=== PATIENT | male | born 1965 | race Caucasian/White ===

== ENCOUNTER 2016-12-28 22:18 | Inpatient (IN) | payer BC ==
[~2016-12-28] VITALS: Ht 177.8 cm; Wt 97.1 kg
[2016-12-28] MEDS ORDERED: HEParin 1000 UNIT/ML (10ML VIAL) FOR BOLUS ONE ×2 (22:19→22:55)
[2016-12-28] MEDS ORDERED: CLOPIDOGREL 300 MG (PLAVIX) TABLET PO ONE ×2 (22:19→22:30)
[2016-12-28] MEDS ORDERED: morphine INJ 10 MG/ML 1ML (SYR OR VIAL) IVP STA ×2 (22:29→22:39)
[2016-12-28 22:37] LABS: BASOPHILS % (AUTO) 0 % (0-10); EOSINOPHILS # (AUTO) 0.3 10^3/uL (0.0-0.3); EOSINOPHILS % (AUTO) 2 % (0-10); LYMPHOCYTES # (AUTO) 4.8 X 10^3 (1.0-4.0); LYMPHOCYTES % (AUTO) 41 % (12-44); MEAN CORPUSCULAR HEMOGLOBIN 32 PG (25-34); MEAN CORPUSCULAR HGB CONC 35 G/DL (32-36); MEAN CORPUSCULAR VOLUME 91 FL (80-99); MONOCYTES # (AUTO) 1.1 X 10^3 (0.0-1.0); MONOCYTES % (AUTO) 9 % (0-12); NEUTROPHILS # (AUTO) 5.6 X 10^3 (1.8-7.8); NEUTROPHILS % (AUTO) 48 % (42-75); PLATELET COUNT 316 10^3/uL (130-400); RED CELL DISTRIBUTION WIDTH 13.5 % (10.0-14.5); WHITE BLOOD COUNT 11.8 10^3/uL (4.3-11.0)
[2016-12-28 22:41] LABS: INR 0.9 (0.8-1.4); PROTHROMBIN TIME PATIENT 12.7 SEC (12.2-14.7)
[2016-12-28 22:52] LABS: ALANINE AMINOTRANSFERASE 27 U/L (0-55); ALBUMIN 3.5 GM/DL (3.2-4.5); AMYLASE 36 U/L (25-125); ANION GAP 12 MMOL/L (5-14); ASPARTATE AMINO TRANSFERASE 20 U/L (5-34); BILIRUBIN,TOTAL 0.2 MG/DL (0.1-1.0); BLOOD UREA NITROGEN 16 MG/DL (7-18); BUN/CREATININE RATIO 15; CALCIUM 8.6 MG/DL (8.5-10.1); CARBON DIOXIDE 18 MMOL/L (21-32); CHLORIDE 107 MMOL/L (98-107); CREATINE KINASE 191 U/L (30-200); CREATININE SERUM 1.08 MG/DL (0.60-1.30); GFR ESTIMATED > 60; GLUCOSE 156 MG/DL (70-105); LIPASE 38 U/L (8-78); MAGNESIUM 2.1 MG/DL (1.8-2.4); POTASSIUM 3.9 MMOL/L (3.6-5.0); SODIUM 137 MMOL/L (135-145); TOTAL PROTEIN 6.2 GM/DL (6.4-8.2)
--- NOTE | 2016-12-28 22:53 | ED Chest Pain ---
General Stated Complaint: CHEST PAIN Source: patient, EMS, spouse History of Present Illness Time seen by provider: 22:18 Initial Comments PT ARRIVES VIA EMS FROM HOME C/O SEVERE MID CHEST PAIN AND LEFT ARM PAIN SINCE 1900 WAS EATING BIRTHDAY CAKE AND PASSED OUT AROUND 2100--FAMILY REPORTS "HE WAS GOING IN AND OUT OF IT" FOR A FEW MINUTES C/O SHORTNESS OF BREATH PROFUSELY DIAPHORETIC + NAUSEA, NO VOMITING EMS GAVE 4 ASPIRIN THEY COULD NOT OBTAIN A BP "ONLY TO PALPATION" BUT WENT AHEAD AND GAVE NTG X 2, THEY ALSO GAVE FENTANYL 50 MCG PT IS UNABLE TO RATE PAIN, BUT STATES IS A LITTLE BETTER, BUT STILL HAVING ALOT OF PAIN, STILL DIAPHORETIC, STILL NAUSEATED AND STILL SHORT OF BREATH C/O DIZZINESS NOW NO HISTORY OF SIMILAR, AND NO HISTORY OF ANY MEDICAL PROBLEMS PCP: NONE--JUST MOVED HERE 2 MONTHS AGO FROM [place] Allergies and Home Medications Allergies Coded Allergies: No Known Drug Allergies (Unverified , 12/28/16) Review of Systems Constitutional: diaphoresis, dizziness EENTM: No Symptoms Reported Respiratory: See HPI, Shortness of Air, SOA at Rest Cardiovascular: See HPI, Chest Pain, Lightheadedness, Denies Palpitations, Syncope Gastrointestinal: See HPI, Denies Abdominal Pain, Nausea, Denies Vomiting Genitourinary: No Symptoms Reported Musculoskeletal: see HPI (LEFT ARM PAIN ) Skin: no symptoms reported Psychiatric/Neurological: See HPI (SYNCOPE) Endocrine: No Symptoms Reported Hematologic/Lymphatic: No Symptoms Reported Past Jngnazm-Tgknla-Ouexrd Hx Patient Social History Alcohol Use: Occasionally Uses (MODERATE USE) Recreational Drug Use: No Smoking Status: Current Everyday Smoker (1 1/2 PPD) Type Used: Cigarettes Surgeries History of Surgeries: Yes (KNEE SURGERY) Surgeries: Orthopedic Respiratory History of Respiratory Disorde: No Cardiovascular History of Cardiac Disorders: No Neurological History of Neurological Disord: No Genitourinary History of Genitourinary Disor: No Gastrointestinal History of Gastrointestinal Di: No Musculoskeletal History of Musculoskeletal Dis: Yes (LEFT ELBOW FX-NO SURGERY; KNEE SURGERY) Musculoskeletal Disorders: Fractures Endocrine History of Endocrine Disorders: No HEENT History of HEENT Disorders: No Cancer History of Cancer: No Psychosocial History of Psychiatric Problem: No Integumentary History of Skin or Integumenta: No Blood Transfusions History of Blood Disorders: No Physical Exam Vital Signs Vital Sign - Last 12Hours 12/28/16 12/28/16 22:18 22:54 Temp 98.7 Pulse 50 Resp 18 B/P (MAP) 120/110 Pulse Ox 97 O2 Delivery Nasal Cannula O2 Flow Rate 2.00 FiO2 100 Capillary Refill : General Appearance: Anxious, Mild Distress, Other (PALE, PROFUSELY DIAPHORETIC , ANXIOUS) HEENT: PERRL/EOMI Neck: Full Range of Motion, Normal Inspection, Non Tender, Supple, No Carotid Bruit, No JVD Respiratory: Chest Non Tender, Normal Breath Sounds, No Accessory Muscle Use, No Respiratory Distress Cardiovascular: No Edema, No JVD, No Murmur, Normal Peripheral Pulses, Bradycardia Gastrointestinal: Normal Bowel Sounds, No Organomegaly, No Pulsatile Mass, Non Tender, Soft Extremity: Normal Capillary Refill, Normal Inspection, Normal Range of Motion, Non Tender, No Calf Tenderness, No Pedal Edema Neurologic/Psychiatric: Alert, Oriented x3, No Motor/Sensory Deficits, tennis racket repairer II- XII Norm as Tested, Other (ANXIOUS) Skin: Diaphoresis, Pallor Critical Care Note Critical Care Start Time: 22:18 Total Time (minutes) 30 Progress/Results/Core Measures Results/Orders Lab Results Laboratory Tests Test 12/28/16 22:22 Range/Units White Blood Count 11.8 H 4.3-11.0 10^3/uL Red Blood Count 4.60 4.35-5.85 10^6/uL Hemoglobin 14.5 13.3-17.7 G/DL Hematocrit 42 40-54 % Mean Corpuscular Volume 91 80-99 FL Mean Corpuscular Hemoglobin 32 25-34 PG Mean Corpuscular Hemoglobin Concent 35 32-36 G/DL Red Cell Distribution Width 13.5 10.0-14.5 % Platelet Count 316 130-400 10^3/uL Mean Platelet Volume 10.0 7.4-10.4 FL Neutrophils (%) (Auto) 48 42-75 % Lymphocytes (%) (Auto) 41 12-44 % Monocytes (%) (Auto) 9 0-12 % Eosinophils (%) (Auto) 2 0-10 % Basophils (%) (Auto) 0 0-10 % Neutrophils # (Auto) 5.6 1.8-7.8 X 10^3 Lymphocytes # (Auto) 4.8 H 1.0-4.0 X 10^3 Monocytes # (Auto) 1.1 H 0.0-1.0 X 10^3 Eosinophils # (Auto) 0.3 0.0-0.3 10^3/uL Basophils # (Auto) 0.0 0.0-0.1 10^3/uL Prothrombin Time 12.7 12.2-14.7 SEC INR Comment 0.9 0.8-1.4 Activated Partial Thromboplast Time 23 L 24-35 SEC Sodium Level 137 135-145 MMOL/L Potassium Level 3.9 3.6-5.0 MMOL/L Chloride Level 107 98-107 MMOL/L Carbon Dioxide Level 18 L 21-32 MMOL/L Anion Gap 12 5-14 MMOL/L Blood Urea Nitrogen 16 7-18 MG/DL Creatinine 1.08 0.60-1.30 MG/DL Estimat Glomerular Filtration Rate > 60 BUN/Creatinine Ratio 15 Glucose Level 156 H 70-105 MG/DL Calcium Level 8.6 8.5-10.1 MG/DL Magnesium Level 2.1 1.8-2.4 MG/DL Total Bilirubin 0.2 0.1-1.0 MG/DL Aspartate Amino Transf (AST/SGOT) 20 5-34 U/L Alanine Aminotransferase (ALT/SGPT) 27 0-55 U/L Alkaline Phosphatase 59 40-136 U/L Total Creatine Kinase 191 30-200 U/L Creatine Kinase MB 3.1 <6.6 NG/ML B-Type Natriuretic Peptide 10.9 <100.0 PG/ML Total Protein 6.2 L 6.4-8.2 GM/DL Albumin 3.5 3.2-4.5 GM/DL Amylase Level 36 25-125 U/L Lipase 38 8-78 U/L My Orders Orders - ADITI DONALDSON DO Heparin (Bolus Per Protocol) (Heparin (B (12/28/16 22:19) Clopidogrel Tablet (Plavix Tablet) (12/28/16 22:19) Amylase (12/28/16 22:29) Cbc With Automated Diff (12/28/16 22:29) Comprehensive Metabolic Panel (12/28/16 22:29) Creatine Kinase (12/28/16 22:29) Creatine Kinase Mb (12/28/16 22:29) Lipase (12/28/16 22:29) Partial Thromboplastin Time (12/28/16 22:29) Protime With Inr (12/28/16 22:29) Troponin I (12/28/16 22:29) Chest 1 View, Ap/Pa Only (12/28/16 22:29) O2 (12/28/16 22:29) Ekg Tracing (12/28/16 22:29) BNP (12/28/16 22:29) Monitor-Rhythm Ecg Trace Only (12/28/16 22:29) Magnesium (12/28/16 22:29) Morphine Injection (Morphine Injection (12/28/16 22:29) Clopidogrel Tablet (Plavix Tablet) (12/28/16 22:30) Heparin Injection (Heparin Injection) (12/28/16 22:30) Ekg Tracing (12/28/16 22:39) Morphine Injection (Morphine Injection (12/28/16 22:39) Alcohol (12/28/16 22:53) Midazolam Injection (Versed Injection) (12/28/16 22:55) Fentanyl Injection (Sublimaze Injection (12/28/16 22:55) Heparin (Bolus Per Protocol) (Heparin (B (12/28/16 22:55) Ns Iv 1000 Ml (Sodium Chloride 0.9%) (12/28/16 22:55) Nitroglycerin Drip 25 Mg/D5w (Nitroglyce (12/28/16 22:55) Heparin ([employer] Gl[employer]ier) (Heparin ([employer] Glazier)) (12/28/16 22:55) Medications Given in ED Current Medications Medications Dose Ordered Sig/Lilia Route Start Time Stop Time Status Last Admin Dose Admin Clopidogrel Bisulfate 600 mg ONCE ONCE PO 12/28/16 22:30 12/28/16 22:32 DC 12/28/16 22:46 600 MG Heparin Sodium (Porcine) 5,000 units ONCE ONCE IV 12/28/16 22:30 12/28/16 22:32 DC 12/28/16 22:46 5,000 UNITS Vital Signs/I&O Vital Sign - Last 12Hours 12/28/16 12/28/16 12/28/16 22:18 22:54 23:08 Temp 98.7 Pulse 50 Resp 18 B/P (MAP) 120/110 Pulse Ox 97 96 O2 Delivery Nasal Cannula Room Air Nasal Cannula O2 Flow Rate 2.00 2.0 FiO2 100 Intake and Output 12/29/16 00:00 Intake Total 500 ml Balance 500 ml Progress Note : Progress Note ALL SYMPTOMS BEGINNING TO EASE--NO LONGER SHORT OF BREATH, NAUSEA IS GONE, NO LONGER DIAPHORETIC AND PAIN BEGINNING TO EASE WITH MEDICATIONS, AND BP IS UP NO DETERIORATION IN PT'S CONDITION DURING ER STAY 2340--MULTIPLE FAMILY MEMBERS IN ROOM NOW, AND PT IS VERY TALKATIVE, JOVIAL, LAUGHING, ETC. ECG Initial ECG Impression Time: 22:18 Initial ECG Rate: 50 Initial ECG Rhythm: Normal Sinus Initial ECG Impression: Acute CO (INFERIOR) Initial ECG Comparisson: No Previous ECG Available EKG : EKG Time: 22:28 Rate: 55 Rhythm: Normal Sinus ECG Impression: Acute CO (INFERIOR) Diagnostic Imaging Comments CXR--NO ACUTE PROCESS, PENDING RADIOLOGIST REVIEW Reviewed: Reviewed by Me Departure Communication (Admissions) Progress Notes 2220--SPOKE WITH DR. GRIDER, ADVISES PLAVIX 600 MG AND HEPARIN 5000 UNITS, CALL IN CHECKERER HAND ( BEING DONE AT THIS TIME BY RN. ) 2310--CHECKERER HAND HERE TO TAKE PT Impression Impression: Primary Impression: Acute ST elevation myocardial infarction (STEMI) of inferior wall Disposition: ADMITTED INPATIENT (TO CHECKERER HAND) Condition: Improved Admissions Decision to Admit Reason: Admit from ER (General) (TO CHECKERER HAND) Decision to Admit/Date: Dec 28, 2016 Time/Decision to Admit Time: 22:20 Departure-Patient Inst. Referrals: NO,LOCAL PHYSICIAN (PCP/Family) Primary Care Physician ADITI DONALDSON DO Dec 28, 2016 22:53
[2016-12-28] MEDS ORDERED: fentaNYL INJECTION 100 MCG/2 ML AMP ONE (22:55)
[2016-12-28] MEDS ORDERED: NS IV 1000 ML 1,000 ML ONE (22:55)
[2016-12-28] MEDS ORDERED: NITROGLYCERIN DRIP 25 MG/D5W 250 ML IV ONE (22:55)
[2016-12-28] MEDS ORDERED: HEParin (CATH LAB) 2,000 ML IV ONE (22:55)
[2016-12-28] MEDS ORDERED: MIDAZOLAM 5 MG/5 ML (VERSED) VIAL ONE (22:55)
[2016-12-28 22:58] LABS: TROPONIN I < 0.30 NG/ML (<0.30)
[2016-12-28] MEDS ORDERED: ATROPINE INJECTION 1 MG/10 ML SYR (ABBOTT) ONE (23:24)
[2016-12-28] MEDS: NS IV 1000 ML 1,000 ML IV SCH (23:32)
[2016-12-28] MEDS ORDERED: EPTIFIBATIDE BOLUS 20 ML IV ONE (23:36)
[2016-12-28] MEDS ORDERED: niCARdipine 25 MG/10 ML (CARDENE) AMP IV ONE (23:37)
[2016-12-28] MEDS ORDERED: NS (IVPB) 250 ML ONE (23:37)
[2016-12-28] MEDS ORDERED: EPTIFIBATIDE DRIP 100 ML IV ONE (23:39)
[2016-12-29] VITALS (20 sets, daily range): BP systolic 112–169; BP diastolic 85–117
[2016-12-29] MEDS ORDERED: meTOprolol 5 MG/5 ML (LOPRESSOR) VIAL ONE (00:03)
--- NOTE | 2016-12-29 00:20 | History & Physicial-Cardiolgy ---
HPI-Cardiology Cardiology Consultation: Date of Consultation 12/29/16 Date of Admission Attending Physician Admitting Physician Tosin,Local Physician Consulting Physician Olimpia GRIDER MD HPI: Time Seen by Provider: 11:15 Chief Complaint: chest pain this is a 50-year-old gentleman with history of active smoking. He presents with chest pain which started at 7 p.m. Initially it was not that severe. However after a few minutes it became very severe intensity 8-10/10. Substernal. no radiation. Improved significantly after reaching the ER. Denies any other symptoms. Review of Systems-Cardiology Review of Systems Constitutional: No As described under HPI, No no symptoms reported, No chills, No fever, No lightheadedness, No malaise, No tiredness, No weight loss, No weight gain, No other Eyes: No As described under HPI, No no symptoms reported, No blindness, No blurred vision, No contact lenses, No drainage, No decreased acuity, No foreign body sensation, No glasses, No inflammation, No pain, No photophobia, No previous injury, No shadows, No tunnel vision, No other, No vision change Ears/Nose/Throat: No As described under HPI, No no symptoms reported, No chronic hearing loss, No epistaxis, No ear discharge, No ear pain, No loose teeth, No mouth pain, No mouth swelling, No nasal drainage, No nose pain, No recent hearing loss, No throat pain, No throat swelling, No ulcerations, No other Respiratory: No no symptoms reported, No As described under HPI, No cough, No orthopnea, No shortness of breath, No SOB with excertion, No SOB at rest, No stridor, No wheezing, No other Cardiovascular: chest pain Gastrointestinal: No no symptoms reported, No As described under HPI, No abdomen distended, No abdominal pain, No blood streaked bowels, No constipation , No diarrhea, No difficulty swallowing, No nausea, No poor appetite, No poor fluid intake, No rectal bleeding, No vomiting, No other, No nausea/vomiting/ diarrhea, No stool coloration changes Genitourinary: No no symptoms reported, No As described under HPI, No burning, No dysuria, No discharge, No frequency, No flank pain, No hematuria, No incontinence, No pain, No urgency, No other, No urine frequency changes, No urine coloration changes Musculoskeletal: No no symptoms reported, No As describe under HPI, No back pain, No gout, No joint pain, No joint swelling, No muscle pain, No muscle stiffness, No neck pain, No other Skin: No no symptoms reported, No As described under HPI, No change in color, No change in hair/nails, No dryness, No lesions, No lumps, No rash, No other, No skin related problems, No ulcerations, No rash on exposed areas, No ulcerations on exposed areas Psychiatric/Neurological: No no symptoms reported, No As described under HPI, No anxiety, No depression, No emotional problems, No headache, No numbness, No pre-existing deficit, No seizure, No tingling, No tremors, No weakness, No other , No focal weakness, No syncope GAX-Cyluwj-Nwqnsr Hx Patient Social History Alcohol Use: Occasionally Uses (MODERATE USE) Recreational Drug Use: No Smoking Status: Current Everyday Smoker (1 1/2 PPD) Type Used: Cigarettes Recent Foreign Travel: No Recent Infectious Disease Expo: No Past Medical History PMH As described under Assessment. Allergies and Home Medications Allergies Coded Allergies: No Known Drug Allergies (Unverified , 12/28/16) Physical Exam-Cardiology Physical Exam Vital Signs/I&O Vital Sign - Last 12Hours 12/28/16 12/28/16 12/28/16 12/28/16 22:18 22:54 23:08 23:12 Temp 98.7 98.6 Pulse 50 55 Resp 18 16 B/P (MAP) 120/110 Pulse Ox 97 96 98 O2 Delivery Nasal Cannula Room Air Nasal Cannula Nasal Cannula O2 Flow Rate 2.00 2.0 2.00 FiO2 100 Capillary Refill : Less Than 3 Seconds Constitutional: No appears stated age, No AAO x 3, No apparent distress, No PERRL, No well-developed, No well-nourished, No other HEENT: No PERRL, No normal ENT inspection, No TMs normal, No pharynx normal, No scleral icterus (R), No scleral icterus (L), No pale conjunctivae (R), No pale conjunctivae (L), No photophobia, No TM abnormal (R), No TM abnormal (L), No pharyngeal erythema, No tonsillar exudate, No other, No discharge, No EOMI, No hearing is well preserved, No hard of hearing, No oral hygience is good, No ulceration, No xanthelasmas are seen Neck: No non-tender, No full range of motion, No supple, No normal inspection, No carotid bruit, No limited range of motion, No lymphadenopathy (R), No lymphadenopathy (L), No tender lateral, No tender midline, No thyromegaly, No other, No carotid pulses are 2 + bilaterally, No with good upstrokes Respiratory: No accessory muscle use, No respiratory distress, No chest tender , No chest expansion is symmetric, No chest is bilaterally symmetric, No lungs clear to percussion, No lungs clear to auscultation, No crackles, No rhonchi, No rales, No stridor, No wheezing, No pleural rub, No other Cardiovascular: No regular rate-rhythm, No irregularly irregular, No extra beats, No parasternal heave is noted, No JVD, No edema, No bradycardia, No tachycardia, No point of maximal impulse, No cardiac thrills are palpable, No S1 and S2, No gallop/S3, No gallop/S4, No diastolic murmur, No systolic murmur, No friction rub, No click, No other Gastrointestinal: No tender, No soft, No round, No distended, No pulsatile mass , No organomegaly, No guarding, No rebound, No tenderness, No hernia, No mass, No audible bowel sounds, No abnormal bowel sounds, No abdominal bruits, No spleenomegaly, No other Rectal: deferred Extremities: No normal range of motion, No non-tender, No normal inspection, No pedal edema, No calf tenderness, No normal capillary refill, No pelvis stable , No calf tenderness, No inflammation, No pedal edema, No slow capillary refill , No swelling, No other, No abrasion, No clubbing, No cyanosis, No ecchymosis, No laceration, No no lower extremity edema bilateral, No significant edema, No tenderness, No wound Neurologic/Psychiatric: No brim stretching machine operator II-XII nml as tested, No no motor/sensory deficits, No alert, No normal mood/affect, No oriented x 3, No abnormal cerebellar tests, No abnormal brim stretching machine operator II-XII, No abnormal gait, No aphasia, No EOM palsy, No facial droop, No motor weakness, No sensory deficit, No depressed affect, No disoriented x 3, No other, No grossly intact, No power is 5/5 both on sides Skin: No normal color, No warm/dry, No cyanosis, No cool, No diaphoresis, No damp, No ecchymosis, No jaundice, No mottled, No pallor, No rash, No tattoos/ piercings, No ulcerations, No rash on exposed areas, No ulcerations on exposed areas, No other Data Review Labs Laboratory Tests 12/28/16 22:22: White Blood Count 11.8H, Red Blood Count 4.60, Hemoglobin 14.5, Hematocrit 42, Mean Corpuscular Volume 91, Mean Corpuscular Hemoglobin 32, Mean Corpuscular Hemoglobin Concent 35, Red Cell Distribution Width 13.5, Platelet Count 316, Mean Platelet Volume 10.0, Neutrophils (%) (Auto) 48, Lymphocytes (%) (Auto) 41 , Monocytes (%) (Auto) 9, Eosinophils (%) (Auto) 2, Basophils (%) (Auto) 0, Neutrophils # (Auto) 5.6, Lymphocytes # (Auto) 4.8H, Monocytes # (Auto) 1.1H, Eosinophils # (Auto) 0.3, Basophils # (Auto) 0.0, Prothrombin Time 12.7, INR Comment 0.9, Activated Partial Thromboplast Time 23L, Sodium Level 137, Potassium Level 3.9, Chloride Level 107, Carbon Dioxide Level 18L, Anion Gap 12 , Blood Urea Nitrogen 16, Creatinine 1.08, Estimat Glomerular Filtration Rate > 60, BUN/Creatinine Ratio 15, Glucose Level 156H, Calcium Level 8.6, Magnesium Level 2.1, Total Bilirubin 0.2, Aspartate Amino Transf (AST/SGOT) 20, Alanine Aminotransferase (ALT/SGPT) 27, Alkaline Phosphatase 59, Total Creatine Kinase 191, Creatine Kinase MB 3.1, Troponin I < 0.30, B-Type Natriuretic Peptide 10.9 , Total Protein 6.2L, Albumin 3.5, Amylase Level 36, Lipase 38, Serum Alcohol 12H ECG Impression ECG Initial ECG Impression: Acute CA A/P-Cardiology Assessment/Admission Diagnosis acute inferior STEMI Plan acute inferior STEMI - emergent coronary angiography. aspirin, Plavix, heparin bolus given in the ER. ICU admission Clinical Quality Measures AMI/AHF: Ejection Fraction: Normal LVSF Olimpia GRIDER MD Dec 29, 2016 00:20
[2016-12-29] MEDS ORDERED: NS IV 1000 ML 1,000 ML IV SCH (00:22)
--- NOTE | 2016-12-29 00:22 | Cardiology Post Procedure Note ---
Post-Procedure Note Physician (s)/Ear Nose Throat Physician (s) Physician Olimpia GRIDER MD Pre-Procedure Diagnosis Pre-Procedure Diagnosis: acute inferior STEMI Post-Procedure Note Procedure Start Date: Dec 29, 2016 Procedure Start Time: 11:15 Name of Procedure: primary PCI to the RCA with drug-eluting stent Findings/Procedure Note occluded RCA treated successfully with drug-eluting stent. Normal LV function with basal inferior hypokinesis. LVEDP 12. Anesthesia Type: Conscious Sedation Estimated blood loss (mL): 30 Contrast Amount: 227 Post-Procedure Diagnosis Post-operative diagnosis: successful primary PCI to RCA Olimpia GRIDER MD Dec 29, 2016 00:22
[2016-12-29] MEDS ORDERED: PATIENT MAY USE OWN MEDS, ALL PO SCH ×2 (00:30→00:45)
[2016-12-29] MEDS: NS IV 1000 ML 1,000 ML IV SCH ×3 (01:34→10:30)
[2016-12-29] MEDS ORDERED: EPTIFIBATIDE DRIP 100 ML IV ONE (05:33)
[2016-12-29 06:27] LABS: MEAN PLATELET VOLUME 10.5 FL (7.4-10.4); RED BLOOD COUNT 4.86 10^6/uL (4.35-5.85); RED CELL DISTRIBUTION WIDTH 13.9 % (10.0-14.5); WHITE BLOOD COUNT 9.8 10^3/uL (4.3-11.0)
[2016-12-29] MEDS: EPTIFIBATIDE DRIP 100 ML IV SCH ×2 (06:33→07:17)
[2016-12-29 06:47] LABS: ANION GAP 10 MMOL/L (5-14); BLOOD UREA NITROGEN 13 MG/DL (7-18); BUN/CREATININE RATIO 16; CALCIUM 8.7 MG/DL (8.5-10.1); CARBON DIOXIDE 21 MMOL/L (21-32); CHLORIDE 105 MMOL/L (98-107); CHOLESTEROL 188 MG/DL (< 200); CREATININE SERUM 0.79 MG/DL (0.60-1.30); DIRECT LDL 126 MG/DL (1-129); GFR ESTIMATED > 60; GLUCOSE 99 MG/DL (70-105); POTASSIUM 4.8 MMOL/L (3.6-5.0); SODIUM 136 MMOL/L (135-145); TRIGLYCERIDES 277 MG/DL (<150); VLDL CHOLESTEROL 55 MG/DL (5-40)
[2016-12-29 07:14] LABS: TROPONIN I 32.29 NG/ML (<0.30)
--- NOTE | 2016-12-29 07:38 | Diagnostic Imaging Report ---
INDICATION: Chest pain. COMPARISON: None. Single view of the chest demonstrates clear lungs bilaterally. The heart is normal. No pneumothorax. Osseous structures normal. IMPRESSION: Negative chest. Dictated by: Dictated on workstation # [id number]
[2016-12-29] MEDS ORDERED: ASPIRIN E.C. 81 MG (ECOTRIN) TAB PO SCH (09:00)
[2016-12-29] MEDS ORDERED: CLOPIDOGREL 75 MG (PLAVIX) TABLET PO SCH (09:00)
[2016-12-29] MEDS ORDERED: lisINopril 5 MG (PRINIVIL) TABLET PO SCH ×2 (09:00)
[2016-12-29] MEDS ORDERED: meTOprolol TARTRATE 25 MG (LOPRESSOR) TABLET PO SCH ×2 (09:00)
--- NOTE | 2016-12-29 12:28 | Cardiology Progress Note ---
Cardiology SOAP Progress Note Subjective: no further chest pain Objective: I&O/Vital Signs Vital Sign - Last 12Hours 12/29/16 12/29/16 12/29/16 12/29/16 00:45 01:00 01:00 01:15 Temp 96.9 Pulse 84 88 87 87 Resp 10 15 9 B/P (MAP) 131/100 141/107 141/97 Pulse Ox 98 100 100 O2 Delivery Nasal Cannula Nasal Cannula Nasal Cannula O2 Flow Rate 4.00 4.00 4.00 12/29/16 12/29/16 12/29/16 12/29/16 01:30 01:45 02:00 02:30 Pulse 92 97 84 96 Resp 8 10 12 B/P (MAP) 142/97 169/117 139/113 129/95 Pulse Ox 99 100 98 99 O2 Delivery Nasal Cannula Nasal Cannula Nasal Cannula Nasal Cannula O2 Flow Rate 4.00 4.00 4.00 4.00 12/29/16 12/29/16 12/29/16 12/29/16 02:48 03:00 04:00 04:00 Temp 97.2 Pulse 95 87 Resp 15 11 B/P (MAP) 134/100 139/102 Pulse Ox 100 99 99 O2 Delivery Nasal Cannula O2 Flow Rate 4.00 12/29/16 12/29/16 12/29/16 12/29/16 04:00 05:00 06:00 07:00 Pulse 92 91 93 Resp 28 14 14 B/P (MAP) 143/104 129/100 142/103 Pulse Ox 100 99 98 96 O2 Delivery Nasal Cannula Room Air O2 Flow Rate 4.00 FiO2 100 12/29/16 12/29/16 12/29/16 12/29/16 07:00 07:39 08:00 08:00 Temp 99.5 Pulse 99 93 Resp 16 B/P (MAP) 138/96 Pulse Ox 96 O2 Delivery Room Air Room Air 12/29/16 12/29/16 12/29/16 09:00 10:00 11:00 Pulse 89 92 83 Resp 24 25 14 B/P (MAP) 126/92 130/86 127/94 Pulse Ox 92 95 95 O2 Delivery Room Air Room Air Room Air Weight (Pounds): 212 Weight (Ounces): 0.0 Weight (Calculated Kilograms): 96.355518 Side: right Groin site without hematoma: Yes Condition: DP/PT pulses palpable Constitutional: No appears stated age, No AAO x 3, No apparent distress, No PERRL, No well-developed, No well-nourished, No other Respiratory: No accessory muscle use, No respiratory distress, No chest tender , No chest expansion is symmetric, No chest is bilaterally symmetric, No lungs clear to percussion, No lungs clear to auscultation, No crackles, No rhonchi, No rales, No stridor, No wheezing, No pleural rub, No other Cardiovascular: No regular rate-rhythm, No irregularly irregular, No extra beats, No parasternal heave is noted, No JVD, No edema, No bradycardia, No tachycardia, No point of maximal impulse, No cardiac thrills are palpable, No S1 and S2, No gallop/S3, No gallop/S4, No diastolic murmur, No systolic murmur, No friction rub, No click, No other Gastrointestional: No tender, No soft, No round, No distended, No pulsatile mass, No organomegaly, No guarding, No rebound, No tenderness, No hernia, No mass, No audible bowel sounds, No abnormal bowel sounds, No abdominal bruits, No spleenomegaly, No other Extremities: No normal range of motion, No non-tender, No normal inspection, No pedal edema, No calf tenderness, No normal capillary refill, No pelvis stable , No calf tenderness, No inflammation, No pedal edema, No slow capillary refill , No swelling, No other, No abrasion, No clubbing, No cyanosis, No ecchymosis, No laceration, No no lower extremity edema bilateral, No significant edema, No tenderness, No wound Neurologic/Psychiatric: No sample shoe inspector and reworker II-XII nml as tested, No no motor/sensory deficits, No alert, No normal mood/affect, No oriented x 3, No abnormal cerebellar tests, No abnormal sample shoe inspector and reworker II-XII, No abnormal gait, No aphasia, No EOM palsy, No facial droop, No motor weakness, No sensory deficit, No depressed affect, No disoriented x 3, No other, No grossly intact, No power is 5/5 both on sides Skin: No normal color, No warm/dry, No cyanosis, No cool, No diaphoresis, No damp, No ecchymosis, No jaundice, No mottled, No pallor, No rash, No tattoos/ piercings, No ulcerations, No rash on exposed areas, No ulcerations on exposed areas, No other Results/Procedures: Labs Laboratory Tests 12/28/16 22:22: White Blood Count 11.8H, Red Blood Count 4.60, Hemoglobin 14.5, Hematocrit 42, Mean Corpuscular Volume 91, Mean Corpuscular Hemoglobin 32, Mean Corpuscular Hemoglobin Concent 35, Red Cell Distribution Width 13.5, Platelet Count 316, Mean Platelet Volume 10.0, Neutrophils (%) (Auto) 48, Lymphocytes (%) (Auto) 41 , Monocytes (%) (Auto) 9, Eosinophils (%) (Auto) 2, Basophils (%) (Auto) 0, Neutrophils # (Auto) 5.6, Lymphocytes # (Auto) 4.8H, Monocytes # (Auto) 1.1H, Eosinophils # (Auto) 0.3, Basophils # (Auto) 0.0, Prothrombin Time 12.7, INR Comment 0.9, Activated Partial Thromboplast Time 23L, Sodium Level 137, Potassium Level 3.9, Chloride Level 107, Carbon Dioxide Level 18L, Anion Gap 12 , Blood Urea Nitrogen 16, Creatinine 1.08, Estimat Glomerular Filtration Rate > 60, BUN/Creatinine Ratio 15, Glucose Level 156H, Calcium Level 8.6, Magnesium Level 2.1, Total Bilirubin 0.2, Aspartate Amino Transf (AST/SGOT) 20, Alanine Aminotransferase (ALT/SGPT) 27, Alkaline Phosphatase 59, Total Creatine Kinase 191, Creatine Kinase MB 3.1, Troponin I < 0.30, B-Type Natriuretic Peptide 10.9 , Total Protein 6.2L, Albumin 3.5, Amylase Level 36, Lipase 38, Serum Alcohol 12H 12/29/16 05:29: White Blood Count 9.8, Red Blood Count 4.86, Hemoglobin 15.3, Hematocrit 45, Mean Corpuscular Volume 92, Mean Corpuscular Hemoglobin 32, Mean Corpuscular Hemoglobin Concent 34, Red Cell Distribution Width 13.9, Platelet Count 286, Mean Platelet Volume 10.5H, Sodium Level 136, Potassium Level 4.8, Chloride Level 105, Carbon Dioxide Level 21, Anion Gap 10, Blood Urea Nitrogen 13, Creatinine 0.79, Estimat Glomerular Filtration Rate > 60, BUN/Creatinine Ratio 16, Glucose Level 99, Calcium Level 8.7, Troponin I 32.29*H, Triglycerides Level 277H, Cholesterol Level 188, LDL Cholesterol Direct 126, VLDL Cholesterol 55H, HDL Cholesterol 43 A/P: Assessment/Dx: acute inferior STEMI Plan: acute inferior STEMI - emergent coronary angiography followed by primary PCI with drug-eluting stent to proximal RCA. Another drug-eluting stent to distal RCA. Aspirin, Plavix, IV Integrilin, beta sherine, ADRIANNE inhibitor, high-dose statin. DC IV Integrilin. Increase metoprolol to 50 mg twice a day. Increase lisinopril to 5 mg daily. Echocardiogram showed borderline normal ejection fraction with inferior hypokinesis. can change to stepdown status. Smoking cessation strongly recommended Thank you for your consultation. Please call me if you have any questions. Brian Wagoner MD, FACP, FACC, FSCAI, FHRS, CCDS Interventional Cardiology Cardiac Electrophysiology Vascular Medicine and Endovascular Interventions Olimpia WAGONER MD Dec 29, 2016 12:28
[2016-12-29] MEDS: ASPIRIN E.C. 81 MG (ECOTRIN) TAB PO SCH (12:29)
[2016-12-29] MEDS: CLOPIDOGREL 75 MG (PLAVIX) TABLET PO SCH (12:29)
[2016-12-29] MEDS ORDERED: lisINopril 5 MG (PRINIVIL) TABLET PO NR (13:45)
--- NOTE | 2016-12-29 14:04 | CARDIAC CATHETERIZATION ---
DATE OF SERVICE: INDICATION: Acute inferior STEMI. PREOPERATIVE DIAGNOSIS: Acute inferior ST elevation myocardial infarction. POSTOPERATIVE DIAGNOSIS: 1. Acute inferior ST elevation myocardial infarction. 2. Successful primary percutaneous coronary intervention to the proximal right coronary artery with drug-eluting stent. HISTORY: The patient is a 50-year-old gentleman with history of active smoking. He presented with chest pain since 7:00 p.m. EKG in the ER showed inferior ST elevation, acute coronary syndrome. cook house laborer was emergently called. PROCEDURE PERFORMED: 1. Coronary angiography. 2. Left heart catheterization. 3. Primary percutaneous coronary intervention to the proximal right coronary artery with drug-eluting stent. COMPLICATIONS: None. SPECIMENS: None. ESTIMATED BLOOD LOSS: 20 mL. ANTICOAGULATION: 1. IV heparin. 2. IV Integrilin. CONTRAST: 227 mL of Omnipaque. FLUOROSCOPY TIME: 12.4 minutes. FLUOROSCOPY DOSE: 1825 mGy. PROCEDURE: The patient was brought to the laboratory equipment cleaner emergently for acute inferior STEMI. He was draped and prepped in the usual sterile fashion. Access was gained in the right femoral artery with a 6-Tajik sheath. Right coronary angiography was performed with right guide catheter, left heart catheterization was performed with a pigtail catheter, left coronary system was engaged with a JL4 diagnostic catheter. FINDINGS: 1. RCA: Totally occluded in the proximal segment. 2. Left main: No significant disease. 3. LAD: Mild to moderate proximal disease 30-50% stenosis. This is a transapical vessel. Mild diffuse disease is noted in the rest of the blood vessel. 4. Left circumflex artery: Moderate to severe ostial disease 50-70% stenosis. There is also moderate 50% disease in the proximal segment of the left circumflex artery. Mild diffuse disease is noted in the rest of the blood vessel. 5. Left heart catheterization: Aortic pressure 104/68, LV pressure 99/3 mmHg, LVEDP 12 mmHg. Ejection fraction normal. Basal inferior hypokinesis is noted. There was no gradient across the aortic valve. RECOMMENDATION: Primary PCI to the proximal RCA is recommended. PCI DETAILS: A JR4 guide catheter, Whisper guidewire, IV heparin and Integrilin for anticoagulation. ACT during the procedure was over 200 seconds. The lesion was crossed with the Whisper wire and a 2.0 x 15 semicompliant balloon. The first inflation was performed at nominal pressures for 10 seconds. Recanalization of the vessel was achieved. Initial EVARISTO flow was 0. Total balloon time was 72 minutes. The wire was placed in the distal vessel. Further ballooning was performed with the same balloon at higher pressures. Significant clot burden was noted. Therefore, 50 mg of intracoronary Cardene was given. We then took 3.5 x 23 drug-eluting stent which was Burt Alpine stent. This was deployed at 16 atmospheres. 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 There was 70% distal RCA disease noted which was treated with a 2.75 x 12 stent which was placed at 14 atmospheres. The same stent balloon was used to post dilatation of the proximal and midsegment at 16 atmospheres. We then took a 4.0 x 20 noncompliant balloon and did an inflation to 20 atmospheres in the proximal stent with excellent results post dilatation. EVARISTO 3 flow was achieved. Another Cardene was given 100 mg. The patient was also given double bolus of Integrilin and started on Integrilin infusion. At the end of the procedure there was still some very distal clot noted however there was EVARISTO 3 flow with almost no residual stenosis. The patient tolerated the procedure well and did not have any complication. IMPRESSION/CONCLUSION: 1. Inferior ST elevation myocardial infarction, successful primary percutaneous coronary intervention with drug-eluting stent to the proximal right coronary artery. 2. PCI to distal right coronary artery. 3. Will be admitted to the intensive care unit. 4. Dual antiplatelet therapy for at least 1 year. 5. Beta sherine and Lisinopril will be started. 6. Echocardiogram in the morning. 7. Smoking cessation was strongly recommended. Job ID: [id number] DocumentID: [id number] Dictated Date: 12/29/2016 01:04:30 Cook Pie Date: 12/29/2016 07:23:36 Dictated By: GIOVANNI GRIDER MD MTDD
[2016-12-29] MEDS: meTOprolol TARTRATE 50 MG (LOPRESSOR) TAB PO SCH (20:14)
[2016-12-29] MEDS ORDERED: ATORVASTATIN 80 MG (LIPITOR) TABLET PO SCH ×2 (21:00)
[2016-12-30] VITALS: BP 117/85
[2016-12-30 04:00] VITALS: BP 126/97
[2016-12-30 08:00] VITALS: BP 121/76
[2016-12-30] MEDS ORDERED: lisINopril 10 MG (PRINIVIL) TAB PO SCH (09:00)
[2016-12-30] MEDS: ASPIRIN E.C. 81 MG (ECOTRIN) TAB PO SCH (09:01)
[2016-12-30] MEDS: CLOPIDOGREL 75 MG (PLAVIX) TABLET PO SCH (09:01)
[2016-12-30] MEDS: meTOprolol TARTRATE 50 MG (LOPRESSOR) TAB PO SCH (09:01)
[2016-12-30 12:00] VITALS: BP 126/76
--- NOTE | 2016-12-30 12:12 | Discharge Inst-Post CATH ---
Discharge Inst-CATH Post Cardiac Cath D/C Inst Follow Up/Plan Follow-up with Dr. Wagoner in the next one to 2 weeks. CARDIAC CATH DISCHARGE INSTRUCTIONS *Hold Metformin for 48 hours post heart cath. ACTIVITY * Go Home directly and rest. * Limit activity of the leg (or wrist if it was used) for 7 days including aerobics, swimming, jogging, bicycling, etc. * Restrict stair-climbing for 7 days if possible, if not, climb up with your non -cath leg, then bring together on the same step. * Avoid lifting, pushing, pulling or excessive movement of the affected extremity for 7 days. * Customary sexual activity may be resumed after 2 days-use caution not to use a position that strains or causes pain to the affected extremity. * No driving for 24 hours. * NO SMOKING. * Avoid straining for bowel movements for 7 days. * Gentle walking on level ground is allowed. * Returning to work will depend on the type of procedure and the results. Your doctor will discuss this with you. CALL YOUR DOCTOR FOR ANY OF THE FOLLOWING: *If bleeding from the puncture site occurs- Apply gentle pressure to site with clean cloth and call your doctor or EMS. * If a knot or lump forms under the skin, increases in size, or causes pain. * If bruising appears to be worsening or moving further down your leg instead of disappearing. * Temperature above 101 F. CARE OF YOUR GROIN INCISION; * Bruising or purple discoloration of the skin near the puncture site is common. * You may shower only, no bathtub bathing for 5 days. Be careful to avoid slipping as your leg may feel stiff. * If a closure device was used on your femoral artery, please see the attached guide regarding care of the device and your leg. * REMOVE the dressing from your groin the next day after your procedure in the shower. CARE OF YOUR WRIST INCISION; * Bruising or purple discoloration of the skin near the puncture site is common. * You may shower. * DO NOT submerge wrist. * Remove dressing in 24 hours. Olimpia WAGONER MD Dec 30, 2016 12:12 pm
[2016-12-30] MEDS ORDERED: ASPI-983 PO (12:15)
[2016-12-30] MEDS ORDERED: METO50TA2 PO (12:15)
[2016-12-30] MEDS ORDERED: ATOR80TA76 PO (12:15)
[2016-12-30] MEDS ORDERED: CLOP75TA28 PO (12:15)
[2016-12-30] MEDS ORDERED: LISI10TA2 PO (12:15)
--- NOTE | 2016-12-30 12:17 | Cardiology Discharge Summary ---
Diagnosis/Chief Complaint Date of Admission Dec 29, 2016 at 12:36 am Date of Discharge 12/30/2016 Admission Diagnosis Acute inferior STEMI Final/Discharge Diagnosis Acute inferior STEMI status post PCI to proximal RCA Chief Complaint/HPI Chief Complaint/HPI this is a 50-year-old gentleman with history of active smoking. He presents with chest pain which started at 7 p.m. Initially it was not that severe. However after a few minutes it became very severe intensity 8-10/10. Substernal. no radiation. Improved significantly after reaching the ER. Denies any other symptoms. Discharge Summary Procedures Primary PCI to the proximal RCA with drug-eluting stent. PCI with drug-eluting stent to distal RCA as well. Discharge Physical Examination Stable Hospital Course No further chest pain. Hemodynamically stable. Pending Labs Laboratory Tests 12/30/16 04:40: Troponin I 28.52 Discussion & Recommendations Discussion Discharge took over 30 minutes to perform. Discharge instructions discussed in depth with the patient and family. Follow up appt.: With Dr. Baker in one to 2 weeks. Dicharge Diet: Cardiac Diet Activity as Tolerated: Yes Home Medications Reviewed patient Home Medication Reconciliation Form Discharge Home Medications: Reviewed and agree with Discharge Medication list on patient's Discharge Instruction sheet Condition at discharge Stable Instructions to patient/family Follow-up with Dr. Wagoner in the next one to 2 weeks. Clinical Quality Measures DVT/VTE Risk/Contraindication: Risk Factor Score Per Nursin RFS Level Per Nursing on Admit: 2=Moderate Olimpia WAGONER MD Dec 30, 2016 12:17 pm
== END 2016-12-30 12:39 | disposition home or self-care (01) | DRG 247 ==
LOC: ER 22:20 → ICU 12-29 00:36
PROVIDERS: ADMIT Internal Medicine Interventional Cardiology; ATTEND Internal Medicine Interventional Cardiology
PROC: 027035Z Dilation of Coronary Artery, One Artery with Two Drug-eluting Intraluminal Devices, Percutaneous Approach (ICD-10-PCS; principal; 2016-12-29)
PROC: 4A023N7 Measurement of Cardiac Sampling and Pressure, Left Heart, Percutaneous Approach (ICD-10-PCS; 2016-12-29)
PROC: B2151ZZ Fluoroscopy of Left Heart using Low Osmolar Contrast (ICD-10-PCS; 2016-12-29)
PROC: B2111ZZ Fluoroscopy of Multiple Coronary Arteries using Low Osmolar Contrast (ICD-10-PCS; 2016-12-29)
DX: I21.19 ST elevation (STEMI) myocardial infarction involving other coronary artery of inferior wall (principal); I25.10 Atherosclerotic heart disease of native coronary artery without angina pectoris; F17.210 Nicotine dependence, cigarettes, uncomplicated; Z72.89 Other problems related to lifestyle
CPT/HCPCS: 36415; 71010; 80048; 80053; 80061; 80320; 82150; 82550; 82553; 83690; 83735; 83880; 84484; 85025; 85027; 85347; 85610; 85730; 93005; 93041; 93306; 93458; 96374; 96375